=== PATIENT | male | born 1965 ===

== ENCOUNTER 2025-05-14 10:54 | Outpatient (CLI) | payer MEDICAID ==
--- NOTE | 2025-05-14 13:30 | DVHSR ---
APPROVED REPORT EXAM: Two-dimensional and M-mode echocardiogram with Doppler and color Doppler. Surgery/Intervention CABG: RISK FACTORS Obesity: DIMENSIONS LVDd4.0 (3.8-5.7cm)LA (2D)3.9 (1.9-4.0cm)Aortic Root3.4 (2.0-3.7cm) LVDs2.3 (2.5-4.0cm)LA (MM) (1.9-4.0cm)Aortic Cusp Exc1.8 (1.5-2.0cm) EF (%) 60.0 (55-70%)Rt. Atrium3.6 (1.9-4.0cm)Asc. Aorta cm IVSd1.3 (0.7-1.1cm)RV (D) (1.8-2.4cm) PWd1.4 (0.7-1.1cm) Mitral Valve MitralMitral Stenosis E wave0.60m/sMV Mean GR.mmHg A wave0.87m/sMV Peak GR.mmHg E/A ratio0.72D MVAcm2 DECEL [id number] 1/2 [place] Aortic Valve Aortic ValveAortic Stenosis V10.87m/Kyle Mean GR.4mmHg V21.36m/Kyle Peak GR.7mmHg LVOT Diameter1.8 (1.8-2.4cm)Doppler AVA1.63cm2 Pulmonic Valve V20.87m/s LEFT VENTRICLE The left ventricle is normal size. There is mild concentric left ventricular hypertrophy. The left ventricle is normal in structure and function. The Ejection Fraction is within normal limits. RIGHT VENTRICLE The right ventricle is normal size. ATRIA The left atrial size is normal. The right atrium size is normal. The interatrial septum is intact with no evidence for an atrial septal defect. MITRAL VALVE The mitral valve is normal in structure. Mitral regurgitation is trace. PULMONIC VALVE The pulmonic valve is not well visualized. TRICUSPID VALVE The tricuspid valve is grossly normal. There is trace tricuspid regurgitation. AORTIC VALVE The aortic valve opens well. No aortic regurgitation is present. GREAT VESSELS The aortic root is normal size. PERICARDIAL EFFUSION There is no pericardial effusion. Other Information Technically limited study due to body habitus and CABG. Conclusion CONC LVH EF >55%
== END 2025-05-14 17:00 | disposition home or self-care (01) ==
LOC: Rad HDHVI 10:54
PROVIDERS: ATTEND Internal Medicine Cardiovascular Disease
DX: I11.9 Hypertensive heart disease without heart failure (principal); R42 Dizziness and giddiness; Z95.1 Presence of aortocoronary bypass graft
CPT/HCPCS: 93306

== ENCOUNTER 2025-05-17 08:05 | Outpatient (CLI) | payer MEDICAID ==
[~2025-05-17] VITALS: Ht 165.1 cm; Wt 108.9 kg
--- NOTE | 2025-05-28 12:58 | DVHSR ---
APPROVED REPORT Exam: Nuclear Stress Test Indication: CAD Ht: 5 ft 5 in Wt: 240 lbs BSA: 2.14 m2 HR: 72 bpm BP: 157/91 mmHg BMI: 39.93 Rhythm: NSR, RBBB Medical History Medical History: CA, HTN, CABG, Diabetes, Syncope, Abnormal EKG, Hypercholesterolemia, Smoking, Stent Medications: Atorvastatin, Clopidogrel, Metformin, Glipizide, Amiodarone Allergies: No known drug allergies Stress Test Details Stress Test: Exercise stress testing was performed using a Terry protocol. HR Resting HR: 72 bpmMax Heart Rate (APMHR): 160.962378 bpm Max HR Achieved: 148 bpmTarget HR (85% APMHR): 136.390794 bpm % of APMHR: 92.50 Recovery HR: 88 bpm HR response to stress: Accelerated BP Resting BP: 157/91 mmHg Max BP: 200/130 mmHg Recovery BP: 138/93 mmHg BP response to stress: Exaggerated response ECG Resting ECG: Sinus Rhythm, RBBB Stress ECG: Sinus Tachycardia Arrhythmia: PVCs, PACs Recovery ECG: Sinus Rhythm Clinical Reason for Termination: Fatigue Stress Symptoms: Fatigue Exercise duration: 3 min 46 sec Exercise capacity: 4.6 METs Stress ECG Conclusion EF 50% NON ISCHEMIC CLINICAL RESPONSE NON ISCHEMIC ECG RESPONSE ISCHEMIC CARDIOLITE STRESS INFERIOR PARTIAL REVERSIBLE DEFECT REVERSIBLE APICAL DEFECT LESS THAN 10% LIKELIHOOD FOR STRESS INDUCED ISCHEMIA NM EXAM: Myocardial Perfusion REST/STRESS Imaging Protocol: Rest Tc-99m/Stress Tc-99m 1 day Resting Data Rest SPECT myocardial perfusion imaging was performed in supine position 30 minutes following the int ravenous injection of 10.6 mCi of Tc-99m Sestamibi. Time of rest injection: 815 Date: 05/17/2025 Time of rest imagin Date: 05/17/2025 Administration Route: IV Administration Site: Left AC Exercise Stress At peak stress, the patient was injected intravenously with 32.7 mCi of Tc-99m Sestamibi. Time of stress injection: 916 Date: 05/17/2025 Time of stress imagin Date: 05/17/2025 Administration Route: IV Administration Site: Left AC Heart Rate at time of stress injection: 148 bpm. Patient continued to exercise for 1 minute(s). Gated Stress SPECT was performed 15 minutes after stress injection. The images were gated to evaluate regional wall motion and calculate left ventricular ejection fracti on. Comments Cardiolite injection at 2 minutes, 46 seconds into test. Nuclear Conclusion EF 50% NON ISCHEMIC CLINICAL RESPONSE NON ISCHEMIC ECG RESPONSE ISCHEMIC CARDIOLITE STRESS INFERIOR PARTIAL REVERSIBLE DEFECT REVERSIBLE APICAL DEFECT LESS THAN 10% LIKELIHOOD FOR STRESS INDUCED ISCHEMIA
== END 2025-05-17 17:00 | disposition home or self-care (01) ==
LOC: Rad HDHVI 08:05
PROVIDERS: ATTEND Internal Medicine Cardiovascular Disease
DX: I45.10 Unspecified right bundle-branch block (principal); R00.0 Tachycardia, unspecified; I49.3 Ventricular premature depolarization; I49.1 Atrial premature depolarization; I10 Essential (primary) hypertension; I25.10 Atherosclerotic heart disease of native coronary artery without angina pectoris; I25.2 Old myocardial infarction; E11.9 Type 2 diabetes mellitus without complications; R55 Syncope and collapse; R94.31 Abnormal electrocardiogram [ECG] [EKG]; E78.00 Pure hypercholesterolemia, unspecified; F17.210 Nicotine dependence, cigarettes, uncomplicated; Z95.1 Presence of aortocoronary bypass graft
CPT/HCPCS: 78452; 93017; A9500; 96374